=== PATIENT | female | born 1985 ===

== ENCOUNTER 2018-03-06 00:05 | Emergency (ER) | payer BC ==
[2018-03-06 00:13] VITALS: O2SAT 100
[2018-03-06] MEDS ORDERED: Sodium Chloride 0.9% 1,000 ML IV STA (00:32)
[2018-03-06] MEDS ORDERED: Iohexol 240 (50 ml) PO ONE (01:03)
[2018-03-06 01:07] LABS: BASO # 0.1 K/uL (0.0-0.2); BASO % 0.4 % (0.0-2.0); EOS % 0.1 % (0.0-4.0); HEMOGLOBIN 12.2 g/dL (12.0-16.0); LYMPH # 1.4 K/uL (1.0-4.3); LYMPH % 8.1 % (20.0-40.0); MEAN CELL VOLUME 82.1 fl (81.0-99.0); MEAN CORPUSCULAR HEMOGLOBIN 27.2 pg (27.0-31.0); MEAN CORPUSCULAR HGB CONC 33.2 g/dL (33.0-37.0); MEAN PLATELET VOLUME 8.7 fl (7.2-11.7); MONO # 0.8 K/uL (0.0-0.8); MONO % 4.7 % (0.0-10.0); NEUT # 14.9 K/uL (1.8-7.0); NEUT % 86.7 % (50.0-75.0); NRBC % 0.1 % (0.0-0.0); PLATELET COUNT 270 K/uL (130-400); RBC 4.47 Mil/uL (3.80-5.20); RED CELL DISTRIBUTION WIDTH 13.4 % (11.5-14.5); WHITE BLOOD COUNT 17.2 K/uL (4.8-10.8)
[2018-03-06 01:16] LABS: ALB/GLOB RATIO 1.2 (1.0-2.1); ALBUMIN 4.6 g/dL (3.5-5.0); ALT/SGPT 26 U/L (9-52); AST/SGOT 25 U/L (14-36); BLOOD UREA NITROGEN 13 mg/dl (7-17); CALCIUM 9.1 mg/dL (8.4-10.2); GFR AFRICAN-AMERICAN > 60; GFR NON-AFRICAN AMERICAN > 60; LIPASE 60 U/L (23-300)
--- NOTE | 2018-03-06 01:19 | ED PDOC ---
HPI: Abdomen Chief Complaint (Provider): abdominal pain History Per: Patient, Family History/Exam Limitations: no limitations Onset/Duration Of Symptoms: Hrs (2) Current Symptoms Are (Timing): Still Present Location Of Pain/Discomfort: Diffuse Quality Of Discomfort: "Pain" Associated Symptoms: Nausea, Vomiting <Fatemeh Melchor - Last Filed: 03/06/18 06:01> <Reagan Nava - Last Filed: 03/06/18 06:51> Time Seen by Provider: 03/06/18 00:18 Chief Complaint (Nursing): Abdominal Pain Additional Complaint(s): 32 y/o female history of crohn's disease (on [place]) presents with diffuse abdominal pain x 2 hours. Associated vomiting x 2. Patient states pain is worse than her usual crohn's flare up pain. Denies fever, chest pain, shortness of breath, palpitations, changes in bowel movements, urinary symptoms. PMD: Dr. Andrés Valenzuela (Fatemeh Melchor) Past Medical History Reviewed: Historical Data, Nursing Documentation, Vital Signs - Medical History PMH: Crohn's Disease - Surgical History Surgical History: No Surg Hx - Family History Family History: States: No Known Family Hx - Living Arrangements Living Arrangements: With Family <Fatemeh Melchor - Last Filed: 03/06/18 06:01> <Reagan Nava - Last Filed: 03/06/18 06:51> Vital Signs: Last Vital Signs Temp 98.0 F 03/06/18 00:11 Pulse 89 03/06/18 00:11 Resp 20 03/06/18 00:11 BP 93/59 L 03/06/18 00:11 Pulse Ox 100 03/06/18 06:02 - Allergies Allergies/Adverse Reactions: Allergies Allergy/AdvReac Type Severity Reaction Status Date / Time No Known Allergies Allergy Verified 03/06/18 00:11 Review of Systems ROS Statement: Except As Marked, All Systems Reviewed And Found Negative Gastrointestinal: Positive for: Nausea, Vomiting, Abdominal Pain <Fatemeh Melchor - Last Filed: 03/06/18 06:01> Physical Exam - Reviewed Nursing Documentation Reviewed: Yes Vital Signs Reviewed: Yes - Physical Exam Appears: Positive for: Well, Non-toxic, In Acute Distress Head Exam: Positive for: ATRAUMATIC, NORMAL INSPECTION, NORMOCEPHALIC Skin: Positive for: Normal Color Eye Exam: Positive for: Normal appearance ENT: Positive for: Normal ENT Inspection Cardiovascular/Chest: Positive for: Regular Rate, Rhythm Respiratory: Positive for: Normal Breath Sounds Gastrointestinal/Abdominal: Positive for: Bowel Sounds, Soft, Tenderness ( epigastric, RUQ) Back: Positive for: Normal Inspection Extremity: Positive for: Normal ROM Neurologic/Psych: Positive for: Alert, Oriented <Ruiz,Fatemeh Prieto - Last Filed: 03/06/18 06:01> - Laboratory Results Result Diagrams: 03/06/18 01:04 03/06/18 01:04 - ECG O2 Sat by Pulse Oximetry: 100 <Catalino Melchoranda Prieto - Last Filed: 03/06/18 06:01> - Laboratory Results Result Diagrams: 03/06/18 01:04 03/06/18 01:04 <BrandyReagan - Last Filed: 03/06/18 06:51> - Progress ED Course And Treament: labs, u/s, IV fluids, IV zofran, IV toradol, IV morphine EXAM: US Abdomen Limited, Right Upper Quadrant CLINICAL HISTORY: 32 years old, female; Pain; Abdominal pain; Epigastric; Additional info: Abd pain, vomiting TECHNIQUE: Real-time ultrasound of the right upper quadrant with image documentation. COMPARISON: No relevant prior studies available. FINDINGS: Liver: Unremarkable. No mass. No intrahepatic bile duct dilation. Gallbladder: Fold is noted. No gallstones. No wall thickening or pericholecystic fluid Common bile duct: Unremarkable as visualized. No stones. No dilation. Pancreas: Unremarkable as visualized. Right kidney: Unremarkable. No stones. No solid mass. No hydronephrosis. The visualized aorta and IVC are unremarkable IMPRESSION: No acute findings detected EXAM: CT Abdomen and Pelvis With Intravenous Contrast CLINICAL HISTORY: 32 years old, female; Pain; Abdominal pain; Generalized; Additional info: Abd pain, vomiting h/o crohn's TECHNIQUE: Axial computed tomography images of the abdomen and pelvis with intravenous contrast. All CT scans at this facility use at least one of these dose optimization techniques: automated exposure control; mA and/or kV adjustment per patient size (includes targeted exams where dose is matched to clinical indication); or iterative reconstruction. 549 images are submitted. Oral contrast was administered.Sagittal , axial and coronal MPR reformatted images are submitted. CONTRAST: 90 mL of [id number] administered intravenously. COMPARISON: US - RIGHT UPPER QUADRANT 2018-03-06 00:36 FINDINGS: Lung bases: Unremarkable. There is hypodense nodule abutting the posterior aspect of the pericardium measuring 1.5 cm seen on image 1 series 3 likely representing benign etiology. Next low transit ABDOMEN: Liver: Fatty liver. Gallbladder and bile ducts: There is gallbladder wall thickening with pericholecystic fluid.If clinically warranted, HIDA scan and correlation with LFTs may be helpful for further assessment. Pancreas: Unremarkable. No mass. No ductal dilation. Spleen: Unremarkable. No splenomegaly. Adrenals: Unremarkable. No mass. Kidneys and ureters: Unremarkable. No solid mass. No hydronephrosis. Stomach and bowel: There is stool like appearance to the terminal ileum with mild haziness. This may represent slow transit/enteritis. Diverticulosis. No obstruction. PELVIS: Appendix: Normal appendix. Bladder: Bladder distention. Correlation with patient's voiding status is recommended Reproductive: Uterus is seen. There is borderline prominence of bilateral ovaries. Correlation with clinical data is recommended if polycystic ovarian disease is suspected. ABDOMEN and PELVIS: Intraperitoneal space: Unremarkable. No free air. No significant fluid collection. Bones/joints: No acute fracture. No dislocation. Soft tissues: There is a fat-containing umbilical hernia. Vasculature: The aorta is normal in caliber and there are no yovanny-aortic collections. No abdominal aortic aneurysm. Lymph nodes: Multiple subcentimeter mesenteric and ileocolic lymph nodes. Findings are nonspecific but may represent mesenteric adenitis. IMPRESSION: 1. There is gallbladder wall thickening with pericholecystic fluid.If clinically warranted, a HIDA scan and correlation with LFTs may be helpful for further assessment if acalculus cholecystitis is clinically suspected. Recent ultrasound demonstrated no gallstones. 2. There is stool like appearance to the terminal ileum with mild haziness. This may represent slow transit/enteritis On re-eval, patient resting comfortably; states pain improved. Case discussed with Dr. Valenzuela, who would like surgical evaluation at this time. (Fatemeh Melchor) Medical Decision Making <Fatemeh Melchor - Last Filed: 03/06/18 06:01> <Reagan Nava - Last Filed: 03/06/18 06:51> Medical Decision Makin Pending surgery consult, will endorse to Dr. Salazar (Reagan Nava) Disposition - Disposition Disposition Time: 06:00 Patient Signed Over To: Reagan Nava Handoff Comments: pending surgical eval <Fatemeh Melchor - Last Filed: 03/06/18 06:01> - Patient ED Disposition Is Patient to be Admitted: Transfer of Care - Disposition Disposition Time: 07:00 Patient Signed Over To: Bebe Salazar <Reagan Nava - Last Filed: 03/06/18 06:51> - Clinical Impression Clinical Impression: Abdominal pain - Disposition Referrals: Domi Rodriguez [Primary Care Provider] - Condition: STABLE Forms: [employer] ([place])
[2018-03-06] MEDS ORDERED: Iohexol 240 (50 ml) ONE (02:23)
[2018-03-06 02:54] LABS: LYMPHOCYTE 13 % (20-50); MONOCYTE 5 % (0-10); NEUTROPHIL 82 % (42-75); TOTAL CELLS COUNTED 100
[2018-03-06 02:59] LABS: ACANTHOCYTES SLIGHT; HYPOCHROMIC SLIGHT; PLATELET ESTIMATE NORMAL (NORMAL); TOXIC GRANULATION PRESENT
[2018-03-06] MEDS ORDERED: Sodium Chloride 0.9% 50 ML IV ONE (04:22)
[2018-03-06] MEDS ORDERED: Iohexol 300 100 ML IJ ONE (04:22)
--- NOTE | 2018-03-06 07:27 | ED PDOC ---
- Laboratory Results Result Diagrams: 03/06/18 01:04 03/06/18 01:04 - ECG O2 Sat by Pulse Oximetry: 100 (RA) Pulse Ox Interpretation: Normal - Progress Re-evaluation Time: 11:00 Condition: Re-examined, Improved Medical Decision Making Medical Decision Making: Time: 7:00 --Patient signed over to this provider by Dr. Nava, pending surgical consult. 1100 Patient has been seen by surgery team in ED. I was notified by surgical scheduler that per Dr Robison there is no evidence of acute sathya and no need for surgical management. Patient is cleared per surgery. Scribe Attestation: Documented by Daria Brewster, acting as a scribe for Bebe Salazar MD Provider Scribe Attestation: All medical record entries made by the Scribe were at my direction and personally dictated by me. I have reviewed the chart and agree that the record accurately reflects my personal performance of the history, physical exam, medical decision making, and the department course for this patient. I have also personally directed, reviewed, and agree with the discharge instructions and disposition Disposition Discussed With DrChata: Conchis Valenzuela Doctor Will See Patient In The: Office Counseled Patient/Family Regarding: Studies Performed, Diagnosis, Need For Followup - Clinical Impression Clinical Impression: Abdominal pain - POA Present On Arrival: None - Disposition Referrals: Domi Rodriguez [Primary Care Provider] - Disposition: Routine/Home Disposition Time: 11:22 Condition: GOOD Additional Instructions: Take your medications as instructed. Follow up with your PCP in 2-3 days. Return for worsening. Instructions: Acute Abdomen (Belly Pain)
--- NOTE | 2018-03-06 08:18 | CP.PCM.CON ---
History of Present Illness - History of Present Illness History of Present Illness: General Surgery Consult Note - Dr. Robison 32F seen and examined in ED. Patient c/o diffuse abdominal pain that started at 10PM yesterday evening along with 3 episodes of non-bloody, non-bilious vomiting. Patient admits to eating dinner with rice, spinach, potatoes, and chickpeas prior to onset of pain. Patient admits to hx of Crohn's disease though present pain is "different"/worse than usual Crohn's flare up. Denies diarrhea, fever, chills. Review of Systems - Review of Systems All systems: reviewed and no additional remarkable complaints except (as per HPI ) Past Patient History - Past Social History Smoking Status: Unknown If Ever Smoked - GASTROINTESTINAL Hx Crohn's Disease: Yes - PSYCHIATRIC Hx Substance Use: No Meds Allergies/Adverse Reactions: Allergies Allergy/AdvReac Type Severity Reaction Status Date / Time No Known Allergies Allergy Verified 03/06/18 00:11 Physical Exam - Constitutional Appears: No Acute Distress - Head Exam Head Exam: ATRAUMATIC, NORMAL INSPECTION, NORMOCEPHALIC - Eye Exam Eye Exam: EOMI, Normal appearance Pupil Exam: NORMAL ACCOMODATION, PERRL - ENT Exam ENT Exam: Mucous Membranes Moist, Normal Exam - Neck Exam Neck exam: Positive for: Full Rom, Normal Inspection - Respiratory Exam Respiratory Exam: NORMAL BREATHING PATTERN. absent: Respiratory Distress - Cardiovascular Exam Cardiovascular Exam: REGULAR RHYTHM - GI/Abdominal Exam GI & Abdominal Exam: Soft, Tenderness. absent: Distended, Guarding, Rebound - Extremities Exam Extremities exam: Positive for: full ROM, normal inspection - Neurological Exam Neurological exam: Alert, Oriented x3 - Skin Skin Exam: Dry, Intact, Normal Color, Warm Results - Vital Signs Recent Vital Signs: Last Vital Signs Temp 98.0 F 03/06/18 00:11 Pulse 89 03/06/18 00:11 Resp 20 03/06/18 00:11 BP 93/59 L 03/06/18 00:11 Pulse Ox 100 03/06/18 07:27 - Labs Result Diagrams: 03/06/18 01:04 03/06/18 01:04 Labs: Laboratory Results - last 24 hr 03/06/18 03/06/18 01:04 01:04 WBC 17.2 H RBC 4.47 Hgb 12.2 Hct 36.7 MCV 82.1 MCH 27.2 MCHC 33.2 RDW 13.4 Plt Count 270 MPV 8.7 Neut % (Auto) 86.7 H Lymph % (Auto) 8.1 L [place] % (Auto) 4.7 Eos % (Auto) 0.1 Baso % (Auto) 0.4 Neut # (Auto) 14.9 H Lymph # (Auto) 1.4 [place] # (Auto) 0.8 Eos # (Auto) 0.0 Baso # (Auto) 0.1 Neutrophils % (Manual) 82 H Lymphocytes % (Manual) 13 L Monocytes % (Manual) 5 Toxic Granulation Present Platelet Estimate Normal Hypochromasia (manual) Slight Acanthocytes (Spur) Slight Sodium 138 Potassium 3.7 Chloride 101 Carbon Dioxide 24 Anion Gap 17 BUN 13 Creatinine 0.5 L Est GFR ( Amer) > 60 Est GFR (Non-Af Amer) > 60 Random Glucose 127 H Calcium 9.1 Total Bilirubin 0.6 AST 25 ALT 26 Alkaline Phosphatase 112 Total Protein 8.4 H Albumin 4.6 Globulin 3.8 Albumin/Globulin Ratio 1.2 Lipase 60 Assessment & Plan - Assessment and Plan (Free Text) Assessment: 32F PMHx Crohn's disease with abdominal pain, nonspecific, resolved Plan: -Abdominal US: No stones. No dilation. -CT A/P: Trace pericholecystic fluid with otherwise unremarkable appearing gallbladder. No significant bowel stratification, obstruction, or fluid collections appreciated -Regular diet -Pain regimen per ED -No acute surgical intervention warranted at this time -May follow up with Dr. Robison PRN Discussed with Dr. Robison General surgery pager: [phone]
[2018-03-06 08:21] VITALS: RESP 16
--- NOTE | 2018-03-06 08:47 | CT ---
PROCEDURE: CT Abdomen and Pelvis with contrast HISTORY: abd pain, vomiting h/o crohn's COMPARISON: None. TECHNIQUE: Contrast dose: 90 mL Omnipaque 300 Radiation dose: Total exam DLP = 204 mGy-cm. This CT exam was performed using one or more of the following dose reduction techniques: Automated exposure control, adjustment of the mA and/or kV according to patient size, and/or use of iterative reconstruction technique. FINDINGS: LOWER THORAX: The 1.5 cm soft tissue nodularity bordering the right posterior pericardium (referenced on the preliminary V rad study is believe most consistent with continuation of the inferior vena cava from the liver course to the heart. No suspect pulmonary nodules noted LIVER: Fatty liver. . No gross lesion or ductal dilatation. GALLBLADDER AND BILE DUCTS: There is suggestion of trace pericholecystic fluid. No gross gallbladder wall thickening appreciated. No gross gallstones noted PANCREAS: Unremarkable. No gross lesion or ductal dilatation. SPLEEN: Unremarkable. ADRENALS: Unremarkable. No mass. KIDNEYS AND URETERS: Unremarkable. No hydronephrosis. No solid mass. VASCULATURE: Unremarkable. No aortic aneurysm. BOWEL: Redundant transverse colon and rectosigmoid colon. Moderate right stool retention. . No obstruction. No gross mural thickening. No gross diverticulitis. No prominent diverticulosis There is clinical history of Crohn's -no gross stratification seen. No gross strictures. Minimal degrees of terminal ileal surrounding fat haziness -inflammatory changes cannot be excluded - appearance is currently minimal APPENDIX: Normal appendix. PERITONEUM: Unremarkable. No free fluid. No free air. LYMPH NODES: Unremarkable. No enlarged lymph nodes. BLADDER: Moderate bladder distention. REPRODUCTIVE: Central uterine cavity hyperdensity prominent correlate with phase of menses. No suspect gross uterine mass seen. . Uterus is retroverted. Bilateral ovarian multiple follicles mild are suspect. For further evaluation in this regard consider pelvic ultrasound with transvaginal technique BONES: No acute fracture. OTHER FINDINGS: None. IMPRESSION: Trace pericholecystic fluid with otherwise unremarkable appearing gallbladder. . Correlate with more sensitive right upper quadrant ultrasound. In regards to patient's history of Crohn's, no significant appearing bowel stratification, obstruction or fluid collections appreciated. Possibly a trace haziness to the fat surrounding the terminal ileum is possible ; yet nonspecific in terms of timing. Fatty liver. Probable of physiological changes of each ovary -consider pelvic/transvaginal ultrasound technique for further evaluation here. Concordant results (preliminary interpretation) provided by [facility].
--- NOTE | 2018-03-06 09:13 | US ---
HISTORY: abd pain, vomiting COMPARISON: None. TECHNIQUE: Sonographic evaluation of the right upper quadrant of the abdomen. FINDINGS: LIVER: Measures 14.2 cm in length. Normal echogenicity of the liver parenchyma. No mass. No intrahepatic bile duct dilatation. GALLBLADDER: Gallbladder fold developmental variant. No gallstones. No gallbladder wall thickening or pericholecystic fluid COMMON BILE DUCT: Measures 5 mm. No stones. No dilatation. PANCREAS: Unremarkable as visualized. No mass. No ductal dilatation. RIGHT KIDNEY: Measures 9.3 x 3.7 x 3.4 cm in length. Normal echogenicity. No calculus, mass, or hydronephrosis. AORTA: No aneurysmal dilatation. IVC: Unremarkable. OTHER FINDINGS: None . IMPRESSION: Unremarkable exam
[2018-03-06 11:37] VITALS: BP 109/60; PULSE 72; TEMP 97.2
== END 2018-03-06 11:35 | disposition home or self-care (01) ==
LOC: H.ER 00:05
DX: K50.90 Crohn's disease, unspecified, without complications (principal); R10.9 Unspecified abdominal pain; K76.0 Fatty (change of) liver, not elsewhere classified
CPT/HCPCS: 74177; 76705; 80053; 83690; 85025; 96374; 96375; 99284; J1885; J2270; J2405; J7030; Q9966; Q9967

== ENCOUNTER 2018-05-30 19:14 | Emergency (ER) | payer BC ==
[2018-05-30 19:44] VITALS: TEMP 98.1; O2SAT 100
[2018-05-30 20:05] VITALS: BP 134/49; PULSE 82; RESP 21
[2018-05-30] MEDS ORDERED: Sodium Chloride 0.9% 1,000 ML IV STA (20:28)
[2018-05-30] MEDS ORDERED: Iohexol 240 (50 ml) PO ONE (20:28)
[2018-05-30 20:41] LABS: BASO # 0.1 K/uL (0.0-0.2); BASO % 0.4 % (0.0-2.0); EOS % 0.3 % (0.0-4.0); LYMPH # 1.5 K/uL (1.0-4.3); LYMPH % 10.6 % (20.0-40.0); MEAN CORPUSCULAR HEMOGLOBIN 26.7 pg (27.0-31.0); MEAN CORPUSCULAR HGB CONC 32.2 g/dL (33.0-37.0); MEAN PLATELET VOLUME 8.6 fl (7.2-11.7); MONO # 0.6 K/uL (0.0-0.8); MONO % 4.2 % (0.0-10.0); NEUT # 11.8 K/uL (1.8-7.0); NEUT % 84.5 % (50.0-75.0); RBC 4.48 Mil/uL (3.80-5.20); RED CELL DISTRIBUTION WIDTH 14.1 % (11.5-14.5); WHITE BLOOD COUNT 13.9 K/uL (4.8-10.8)
[2018-05-30 20:57] LABS: ALB/GLOB RATIO 1.2 (1.0-2.1); ALBUMIN 4.4 g/dL (3.5-5.0); ALT/SGPT 29 U/L (9-52); AST/SGOT 23 U/L (14-36); BLOOD UREA NITROGEN 11 mg/dl (7-17); CALCIUM 9.4 mg/dL (8.4-10.2); GFR NON-AFRICAN AMERICAN > 60; LIPASE 75 U/L (23-300)
--- NOTE | 2018-05-30 21:18 | ED PDOC ---
HPI: Abdomen Time Seen by Provider: 05/30/18 20:16 Chief Complaint (Nursing): Abdominal Pain Chief Complaint (Provider): Abdominal Pain History Per: Patient History/Exam Limitations: no limitations Onset/Duration Of Symptoms: Days (x1) Current Symptoms Are (Timing): Still Present Additional Complaint(s): 33 year old female with pmHx of Crohn's disease, arrives to ED with a complaint of diffuse abdominal pain associated with multiple episodes of nonbloody, nonbilious vomiting since this afternoon. She denies any fever, chills, diarrhea , constipation, or taking medication for relief [employer]. PMD: Dr. Conchis Valenzuela Gastro: Dr. Domi Rodriguez Past Medical History Reviewed: Historical Data, Nursing Documentation, Vital Signs Vital Signs: Last Vital Signs Temp 98.1 F 05/30/18 19:42 Pulse 82 05/30/18 20:04 Resp 21 05/30/18 20:04 BP 134/49 L 05/30/18 20:04 Pulse Ox 100 05/31/18 03:39 - Medical History PMH: Crohn's Disease - Surgical History Surgical History: No Surg Hx - Family History Family History: States: Unknown Family Hx - Home Medications Home Medications: Ambulatory Orders Medication Instructions Recorded Ondansetron ODT [Zofran ODT] 4 mg PO Q8 PRN #12 odt 05/31/18 - Allergies Allergies/Adverse Reactions: Allergies Allergy/AdvReac Type Severity Reaction Status Date / Time No Known Allergies Allergy Verified 05/30/18 19:42 Review of Systems ROS Statement: Except As Marked, All Systems Reviewed And Found Negative Constitutional: Negative for: Fever, Chills Gastrointestinal: Positive for: Vomiting (NBNB), Abdominal Pain (diffuse). Negative for: Diarrhea, Constipation Physical Exam - Reviewed Nursing Documentation Reviewed: Yes Vital Signs Reviewed: Yes - Physical Exam Appears: Positive for: Non-toxic, Uncomfortable, In Acute Distress (mildly) Head Exam: Positive for: ATRAUMATIC, NORMAL INSPECTION, NORMOCEPHALIC Skin: Positive for: Normal Color Eye Exam: Positive for: Normal appearance ENT: Positive for: Normal ENT Inspection Neck: Positive for: Normal Cardiovascular/Chest: Positive for: Regular Rate, Rhythm, Chest Non Tender. Negative for: Murmur Respiratory: Positive for: Normal Breath Sounds. Negative for: Wheezing, Respiratory Distress Gastrointestinal/Abdominal: Positive for: Soft, Tenderness (diffuse mildly (-) localized) Back: Positive for: Normal Inspection. Negative for: L CVA Tenderness, R CVA Tenderness Extremity: Positive for: Normal ROM (upper/lower) Neurologic/Psych: Positive for: Alert, Oriented. Negative for: Motor/Sensory Deficits - Laboratory Results Result Diagrams: 05/30/18 20:35 05/30/18 20:35 - ECG O2 Sat by Pulse Oximetry: 100 (RA) Pulse Ox Interpretation: Normal Medical Decision Making Medical Decision Making: Initial Impression: Abdominal pain with vomiting Differential diagnosis: SBO, pancreatitis, gastritis, cholecystitis, appendicitis, Crohn's disease exacerbation Initial Plan: * CT ABD/pelvis with IV contrast * Labs * Ativan 1mg IV * Bentyl 10mg PO * Morphine 2mg IVP * IV fluids * Omnipaque 240 50ml IVP * Zofran inj 4mg IV Scribe Attestation: Documented by Lana Zurita, acting as a scribe for Bebe Salazar MD. Provider Scribe Attestation: All medical record entries made by the Scribe were at my direction and personally dictated by me. I have reviewed the chart and agree that the record accurately reflects my personal performance of the history, physical exam, medical decision making, and the department course for this patient. I have also personally directed, reviewed, and agree with the discharge instructions and disposition. Disposition - Clinical Impression Clinical Impression: Abdominal pain, Gallstones - Patient ED Disposition Is Patient to be Admitted: Transfer of Care Doctor Will See Patient In The: Office Counseled Patient/Family Regarding: Studies Performed, Diagnosis, Need For Followup - Disposition Referrals: Rishi Hernandez [facility] [Outside] Disposition: Transfer of Care Disposition Time: 00:00 Condition: STABLE Prescriptions: Ondansetron ODT [Zofran ODT] 4 mg PO Q8 PRN #12 odt PRN Reason: Nausea/Vomiting Instructions: Stomach Ache and Stomach Upset Forms: [employer] ([place]ian) Patient Signed Over To: Reagan Nava
[2018-05-30] MEDS ORDERED: Iohexol 240 (50 ml) ONE (21:22)
[2018-05-30 21:45] LABS: BARBITURATES, UR NEGATIVE (NEGATIVE); BENZODIAZEPINES, UR NEGATIVE (NEGATIVE); OPIATES, UR NEGATIVE (NEGATIVE); PHENCYCLIDINE, UR NEGATIVE (NEGATIVE)
[2018-05-30] MEDS ORDERED: Alum-Mag Hydrox-Simethicone Susp (30 mL) PO ONE (22:46)
[2018-05-30] MEDS ORDERED: Iohexol 300 100 ML IJ ONE (23:23)
[2018-05-30] MEDS ORDERED: Sodium Chloride 0.9% 50 ML IV ONE (23:23)
--- NOTE | 2018-05-31 00:05 | ED PDOC ---
"- Laboratory Results Result Diagrams: 05/30/18 20:35 05/30/18 20:35 - ECG O2 Sat by Pulse Oximetry: 100 (RA) Medical Decision Making Medical Decision Makin Patient care endorsed from Dr. Salazar to Dr. Nava pending CT results. 200 EXAM: CT Abdomen and Pelvis With Intravenous Contrast CLINICAL HISTORY: 33 years old, female; Pain; Abdominal pain; Additional info: Abdominal pain. Vomiting TECHNIQUE: Axial computed tomography images of the abdomen and pelvis with intravenous contrast. All CT scans at this facility use at least one of these dose optimization techniques: automated exposure control; mA and/or kV adjustment per patient size (includes targeted exams where dose is matched to clinical indication); or iterative reconstruction. Coronal and sagittal reformatted images were created and reviewed. CONTRAST: 90 mL of omnipaque-300 administered intravenously. COMPARISON: No relevant prior studies available. FINDINGS: Lung bases: Intact. No mass. No consolidation. ABDOMEN: Liver: Intact. No mass. Gallbladder and bile ducts: Inhomogeneous gallbladder contents suspicious for small noncalcified stones. Minimal pericholecystic fluid. No ductal dilation. Pancreas: No mass. No ductal dilation. Spleen: No splenomegaly. Adrenals: No mass. Kidneys and ureters: No solid mass. No hydronephrosis. Stomach and bowel: Moderate large amount of retained feces throughout the colon. Desiccated and her continence and the terminal ileum suggesting slow small bowel transit. PELVIS: Appendix: The visualized appendix appears normal. Likelihood of acute appendix inflammation is low. Bladder: No mass. TYRA SMITH | Final Radiology Report CONFIDENTIALITY STATEMENT This report is intended only for use by the referring physician, and only in accordance with law. If you received this in error, call [phone]. Page 2 of 2 Reproductive: Top normal right adnexa measuring approximately 3 x 3 x 2 cm containing a peripheral enhancing structure most likely a involuting functional cyst that measures 2.0 cm. Retroflexed uterus. Normal left ovary. ABDOMEN and PELVIS: Intraperitoneal space: No free air. No significant fluid collection. Bones/joints: No acute fracture. No dislocation. Soft tissues: No radiopaque foreign body. Vasculature: No aortic aneurysm. Lymph nodes: No enlarged lymph nodes. IMPRESSION: 1. Inhomogeneous gallbladder contents suspicious for small noncalcified stones. Minimal pericholecystic fluid. Ultrasound gallbladder recommended. 2. Top normal right ovary measuring approximately 3 x 3 x 2 cm containing a peripheral enhancing structure most likely a involuting functional cyst that measures 2.0 cm. Thank you for allowing us to participate in the care of your patient. Dictated and Authenticated by: Rony Velasquez MD 05/31/2018 1:00 AM Eastern Time ([place] & [place]) Patient informed of results which are unchanged from prior CT. States she is feeling better, able to walk around ED without pain. Advised patient to followup with PMD. Scribe Attestation: Documented by Leni King, acting as a scribe for Reagan Nava MD. Provider Scribe Attestation: All medical record entries made by the Scribe were at my direction and personally dictated by me. I have reviewed the chart and agree that the record accurately reflects my personal performance of the history, physical exam, medical decision making, and the department course for this patient. I have also personally directed, reviewed, and agree with the discharge instructions and disposition. Disposition - Clinical Impression Clinical Impression: Abdominal pain, Gallstones - POA Present On Arrival: None - Disposition Referrals: Rishi Ruff [Outside] Disposition: Routine/Home Disposition Time: 02:30 Condition: IMPROVED Prescriptions: Ondansetron ODT [Zofran ODT] 4 mg PO Q8 PRN #12 odt PRN Reason: Nausea/Vomiting Instructions: Stomach Ache and Stomach Upset Forms: Rishi Hernandez (Pashto)"
--- NOTE | 2018-05-31 13:57 | CT ---
Date of service: 05/30/2018 PROCEDURE: CT Abdomen and Pelvis with contrast HISTORY: abdominal pain COMPARISON: 03/06/2018 TECHNIQUE: Contrast dose: 90 milliliters Radiation dose: Total exam DLP = 215 mGy-cm. This CT exam was performed using one or more of the following dose reduction techniques: Automated exposure control, adjustment of the mA and/or kV according to patient size, and/or use of iterative reconstruction technique. FINDINGS: LOWER THORAX: Unremarkable. LIVER: There is mild fatty infiltration of the liver with focal fatty sparing noted adjacent to the gallbladder. No focal liver mass or intrahepatic ductal dilatation is seen. GALLBLADDER AND BILE DUCTS: There is slightly distended gallbladder, although similar to prior study. Minimal amount of low density adjacent to the gallbladder is once again noted in a similar position. Minimal pericholecystic fluid is not excluded. No new gallbladder wall thickening is seen. A few non calcified gallstones in the gallbladder are not excluded. PANCREAS: Unremarkable. No gross lesion or ductal dilatation. SPLEEN: Unremarkable. ADRENALS: Unremarkable. No mass. KIDNEYS AND URETERS: Unremarkable. No hydronephrosis. No solid mass. VASCULATURE: Unremarkable. No aortic aneurysm. BOWEL: Unremarkable. No obstruction. No gross mural thickening. APPENDIX: Normal appendix. PERITONEUM: Unremarkable. No free fluid. No free air. LYMPH NODES: Unremarkable. No enlarged lymph nodes. BLADDER: Unremarkable. REPRODUCTIVE: There is a probable involuting right ovarian follicular cyst measuring 1.8 centimeters. Minor amount of physiologic fluid is seen in the right pelvis and cul-de-sac. A few small follicles are noted in the left ovary. Uterus is normal in size. BONES: No acute fracture. OTHER FINDINGS: None. IMPRESSION: Gallbladder has a similar appearance to the prior examination dated 03/06/2018. There is a minimal amount of low density seen between the liver and gallbladder which may reflect minor pericholecystic fluid. No new gallbladder wall thickening is noted. Ultrasound may prove helpful as clinically indicated. Probable involuting follicle within the right ovary with small amount of adjacent fluid. This agrees with preliminary report.
== END 2018-05-31 03:15 | disposition home or self-care (01) ==
LOC: H.ER 19:14
DX: K80.20 Calculus of gallbladder without cholecystitis without obstruction (principal); R10.9 Unspecified abdominal pain; K50.90 Crohn's disease, unspecified, without complications
CPT/HCPCS: 74177; 80053; 81025; 83690; 85025; 96374; 96375; 96376; 99284; G0480; J2060; J2270; J2405; J7030; Q9966; Q9967